=== PATIENT | female | born 1970 | race Caucasian/White ===

== ENCOUNTER 2016-10-18 19:05 | Inpatient (IN) | payer OTHER ==
[~2016-10-18] VITALS: Ht 154.9 cm; Wt 71.2 kg
[2016-10-18 19:25] VITALS: BP 134/93
--- NOTE | 2016-10-18 20:25 | NUR ---
Patient being evaluated by physician at bedside.
--- NOTE | 2016-10-18 20:25 | NUR ---
TO ER BED 8
--- NOTE | 2016-10-18 20:27 | NUR ---
C/O SOB/COUGH/FEVER/PAINFUL URINATION FOR 2 DAYSMED HX: ASTHMA/DIABETIC HX: CERVICAL CA/2006 SUDDEN CARDIAC
[2016-10-18] MEDS ORDERED: NITROGLYCERIN 0.4 MG TAB SL ONE (20:30)
[2016-10-18] MEDS ORDERED: ASPIRIN 325 MG TAB PO ONE (20:30)
[2016-10-18] MEDS ORDERED: ALBUTEROL 0.083% 2.5 MG/3 ML NEBU INH ONE (20:30)
[2016-10-18] MEDS ORDERED: methylPREDNISolone SS 125 MG/2 ML VIAL IVP ONE (20:30)
[2016-10-18] MEDS ORDERED: IPRATROPIUM 0.02% 0.5 MG/2.5 ML NEBU INH ONE (20:30)
[2016-10-18] MEDS ORDERED: cefTRIAXone 1,000 MG VIAL ONE (21:07)
--- NOTE | 2016-10-18 21:49 | NUR ---
Patient will be admitted to care of [facility]. Admited to TELEMETRY. Will go to [facility] 106 A. Belongings list completed. Report to JOI JOY.
[2016-10-18] MEDS ORDERED: MORPHINE SULFATE 2 MG/ML SYR IVP PRN (22:00)
[2016-10-18] MEDS ORDERED: HYDROcodone/APAP 5/325 MG 1 TAB TAB PO PRN (22:00)
[2016-10-18] MEDS: METOPROLOL SUCCINATE 50 MG TABER PO SCH (22:00)
[2016-10-18] MEDS: LISINOPRIL 5 MG TAB PO SCH (22:00)
[2016-10-18] MEDS ORDERED: ACETAMINOPHEN 325 MG TAB PO PRN (22:00)
[2016-10-18] MEDS ORDERED: ALBUTEROL SULFATE/IPRATROPIU 3 ML SOL IH PRN (22:00)
[2016-10-18] MEDS ORDERED: ONDANSETRON 4 MG/2 ML VIAL IVP PRN (22:00)
--- NOTE | 2016-10-18 22:02 | NUR ---
PT TRASFERRED TO TELEMETRY ROOM 106 A. ACCOMPANIED BY RN AND EMT. MONITOR IN BED. NO S/S OF DISTRESS DURING TRASFER.
[2016-10-18 22:10] VITALS: BP 115/68
--- NOTE | 2016-10-18 22:30 | NUR ---
ADMITTED 46 Y/O FEMALE TO TELE FROM ER AT 2205 PM VIA GURNEY WITH DX: CHEST PAIN. INITIAL ASSESSMENT, BODY CHECK AND ADMISSION INTERVENTION DONE. PATIENT AAO X 4, ABLE TO FOLLOW COMMAND AND MAKE NEEDS KNOWN AND AMBULATORY BY SELF WITH STEADY GAIT. NO S/S OF DISTRESS OR SOB NOTED UPON ADMISSION. SKIN WARM/DRY TO TOUCH WITH NORMAL COLOR AND INTACT. LUNG SOUNDS ALL CLEAR ALL LOBES. DENIED OF ANY PAIN/DISCOMFORT AT THIS TIME. INSTRUCTED PATIENT TO UNIT/ENVIRONMENT. ALSO, DISCUSSED PLAN OF CARE, PAIN MANAGEMENT AND MEDICATION REGIMEN WITH PATIENT AND PATIENT VERBALIZED UNDERSTANDING. PLACED PATIENT ON SAFETY PRECAUTIONS AND WILL CONTINUE TO MONITOR. CALL LIGHT LEFT WITHIN REACH.
[2016-10-18] MEDS ORDERED: PNEUMOCOCCAL VACCINE 23 MCG/0.5 ML VIAL IMVAC PRN (23:15)
[2016-10-18] MEDS: ALBUTEROL SULFATE/IPRATROPIU 3 ML SOL IH SCH (23:18)
--- NOTE | 2016-10-18 23:30 | NUR ---
NOT ADMINISTER BLOOD PRESSURE MEDICATIONS TONIGHT DUE TO PATIENT STATED THAT SHE ALREADY TOOK THEM TODAY. GAVE 1 PAIR OF CHICKEN SANDWICH AND ICE-WATER PER REQUESTED.
[2016-10-19] VITALS (7 sets, daily range): BP systolic 102–140; BP diastolic 62–77
--- NOTE | 2016-10-19 00:20 | NUR ---
PATIENT RESTED COMFORTABLY IN BED AND REMAINED IN STABLE CONDITION. NO ANY COMPLAINT MADE. WILL CONTINUE TO MONITOR.
[2016-10-19] MEDS: ALBUTEROL SULFATE/IPRATROPIU 3 ML SOL IH SCH ×6 (03:26→23:00)
--- NOTE | 2016-10-19 03:30 | NUR ---
PATIENT IS CLINICALLY STABLE AND NO APPARENT DISTRESS NOTED. WILL CONTINUE TO MONITOR.
[2016-10-19] MEDS: methylPREDNISolone SS 125 MG/2 ML VIAL IVP SCH ×3 (04:13→20:45)
--- NOTE | 2016-10-19 07:23 | NUR ---
ENDORSED PLAN OF CARE TO JOI WHITNEY, AT BEDSIDE. PATIENT RESTED WELL THROUGHOUT THE SHIFT AND REMAINED IN STABLE CONDITION WITHOUT S/S OF DISTRESS NOTED.
--- NOTE | 2016-10-19 07:30 | NUR ---
PATIENT HAS BEEN SCREENED AND CATEGORIZED MODERATE NUTRITION RISK. PATIENT WILL BE SEEN WITHIN 3-5 DAYS OF ADMISSION. 10/21/16-10/23/[address]
--- NOTE | 2016-10-19 07:31 | NUR ---
PT ALERT AND ORIENTED X4, BREATHING EVENLY AND UNLABORED. NO SIGNS OF ACUTE DISTRESS. SKIN IS INTACT WARM AND DRY. NO SIGNS OF ANY BOWEL/BLADDER DISCOMFORT. NO C/O OF PAIN. ALL NEEDS ATTENDED, SAFETY PRECAUTIONS MAINTAINED. CALL LIGHT WITHIN REACH.
[2016-10-19] MEDS: LACTOBACILLUS RHAMNOSUS GG 1 EACH CAP PO SCH (08:12)
[2016-10-19] MEDS: LISINOPRIL 5 MG TAB PO SCH (08:13)
[2016-10-19] MEDS: METOPROLOL SUCCINATE 50 MG TABER PO SCH (08:13)
[2016-10-19] MEDS: MONTELUKAST SODIUM 10 MG TAB PO SCH (08:13)
[2016-10-19] MEDS ORDERED: ATORVASTATIN 20 MG TAB PO SCH (09:00)
[2016-10-19] MEDS ORDERED: ECOTRIN 81 MG TABEC PO SCH (09:00)
[2016-10-19] MEDS ORDERED: NACL 0.9% 1,000 ML IV SCH (11:05)
--- NOTE | 2016-10-19 11:13 | NUR ---
WAS SEEN BY DR. CARDOZO. NEW ORDER RECEIVED. NOTED AND CARRIED OUT.
--- NOTE | 2016-10-19 12:00 | NUR ---
FAXED INITIAL REVIEW TO [facility] [phone] PHONE JC [phone]
[2016-10-19] MEDS ORDERED: LISINOPRIL 10 MG TAB PO SCH (12:15)
[2016-10-19] MEDS ORDERED: LORATADINE 10 MG TAB PO SCH (12:30)
[2016-10-19] MEDS ORDERED: MAG SULF 2000 MG/WATER PREMIX 50 ML IV SCH (12:30)
[2016-10-19] MEDS ORDERED: DEXTROSE 50% 50 ML SYR IVP PRN (12:30)
[2016-10-19] MEDS ORDERED: METOPROLOL SUCCINATE 50 MG TABER PO SCH (13:00)
[2016-10-19] MEDS ORDERED: AZITHROMYCIN 250 MG TAB PO SCH (13:00)
[2016-10-19] MEDS ORDERED: FAMOTIDINE 20 MG TAB PO SCH (13:00)
--- NOTE | 2016-10-19 15:46 | NUR ---
NEW AM LAB ORDERS RECEIVED FORM DR. CARDOZO. NOTED AND CARRIED OUT.
[2016-10-19] MEDS: GLIMEPIRIDE 2 MG TAB PO SCH (16:32)
[2016-10-19] MEDS: metFORMIN 500 MG TAB PO SCH (16:33)
[2016-10-19] MEDS: BLOOD GLUCOSE MONITORING 1 DEV DEV FS SCH ×3 (16:43→20:44)
[2016-10-19] MEDS: INSULIN LISPRO SLIDING SCALE 100 UNITS/ML VIAL SUBQ PRN ×2 (16:44→20:54)
--- NOTE | 2016-10-19 16:51 | NUR ---
NOTED PT'S BS 453, DR CARIDAD SPANN AWARE, GIVEN 10 UNITS OF INSULIN SQ PRN X1 ORDERED. CONTINUE TO MONITOR.
[2016-10-19] MEDS ORDERED: POTASSIUM CHLORIDE 10 MEQ TABER PO SCH (17:00)
--- NOTE | 2016-10-19 18:00 | NUR ---
NEW DIET ORDER RECEIVED FROM DR. SPANN NOTED AND CARRIED OUT.
--- NOTE | 2016-10-19 19:02 | NUR ---
PT ALERT AND RESPONSIVE, NO SIGNS OF ACUTE DISTRESS. ENDORSED TO ONCOMING ORNAMENTAL METAL WORKER NURSE FOR CONTINUITY OF CARE.
--- NOTE | 2016-10-19 19:28 | NUR ---
RECEIVED REPORT FROM JOI WHITNEY, AT BEDSIDE. INITIAL ASSESSMENT AND BODY CHECK DONE. PATIENT AAO X 4, ABLE TO FOLLOW COMMAND AND MAKE NEEDS KNOWN AND AMBULATORY BY SELF WITH STEADY GAIT. PATIENT CURRENTLY SITING UP ON THE BED AND WATCHING TV. NO S/S OF DISTRESS OR SOB NOTED. SKIN WARM/DRY TO TOUCH WITH NORMAL COLOR AND INTACT. DENIED OF ANY PAIN/DISCOMFORT AT THIS TIME. DISCUSSED PLAN OF CARE, PAIN MANAGEMENT AND MEDICATION REGIMEN WITH PATIENT AND PATIENT VERBALIZED UNDERSTANDING. PLACED PATIENT ON SAFETY PRECAUTIONS AND WILL CONTINUE TO MONITOR. CALL LIGHT LEFT WITHIN REACH.
--- NOTE | 2016-10-19 19:40 | NUR ---
FAMILY IN THE ROOM. PT REFUSED TX , SHE SAID THAT SHE FEEL BETTER
--- NOTE | 2016-10-19 21:30 | NUR ---
ADMINISTERED DUE MEDICATIONS AND HS SNACKS MD'S ORDERED WITH EDUCATION GIVEN. PATIENT COMPLYING WITH MEDICATIONS AND TOLERATED WELL. RESTED COMFORTABLY IN BED WITH ALL NEEDS ATTENDED. WILL CONTINUE TO MONITOR.
--- NOTE | 2016-10-20 00:11 | NUR ---
SEEN PATIENT AMBULATED TO THE RESTROOM AND BACK TO BED SAFELY BY SELF WITHOUT ANY DIFFICULTY. PATIENT REMAINED IN STABLE CONDITION AND NO ANY COMPLAINT MADE. WILL CONTINUE TO MONITOR.
--- NOTE | 2016-10-20 02:06 | NUR ---
PATIENT IS RESTING QUIETLY IN BED AND NO CHANGE IN CONDITION NOTED. WILL CONTINUE TO MONITOR.
[2016-10-20] MEDS: ALBUTEROL SULFATE/IPRATROPIU 3 ML SOL IH SCH ×6 (03:30→23:29)
--- NOTE | 2016-10-20 03:30 | NUR ---
PT ASLEEP, SAT IN ROOM AIR 97%, NO DISTRESS NOTED, NOTIFIED RN THAT PT REFUSED AND CALL IF PT ASK FOR TX HHN.
[2016-10-20 04:00] VITALS: BP 126/75
[2016-10-20] MEDS: methylPREDNISolone SS 40 MG/ML VIAL IVP SCH ×3 (04:28→20:34)
--- NOTE | 2016-10-20 04:55 | NUR ---
PATIENT IS CLINICALLY STABLE WITH UNCHANGED V/S. WILL CONTINUE TO MONITOR.
[2016-10-20] MEDS: BLOOD GLUCOSE MONITORING 1 DEV DEV FS SCH ×4 (05:43→22:50)
[2016-10-20] MEDS: INSULIN LISPRO SLIDING SCALE 100 UNITS/ML VIAL SUBQ PRN ×4 (05:45→22:52)
--- NOTE | 2016-10-20 07:11 | NUR ---
ENDORSED PLAN OF CARE TO JOI HARMAN, AT BEDSIDE. PATIENT REMAINED IN STABLE CONDITION AND NO APPARENT DISTRESS NOTED.
--- NOTE | 2016-10-20 07:12 | NUR ---
RECEIVED REPORT FROM JOI JOY. PT IS AWAKE RESTING ON BED, AAO X4, SKIN INTACT, IV ON RIGHT AC FLUSHED PATENT AND INTACT ON SL, INITIAL ASSESSMENT DONE, NO S/S OF RESPIRATORY DISTRESS OR DISCOMFORT NOTED, DISCUSSED PLAN OF CARE, PT VERBALIZED UNDERSTANDING, SAFETY/FALL PRECAUTION ENFORCED, CALL LIGHT WITHIN REACH, WILL CONTINUE TO MONITOR.
--- NOTE | 2016-10-20 07:16 | NUR ---
HHN TX GIVEN. CLEAR BS. SAT 96% ON RA. NO DISTRESS OR SOB NOTED. PT AWAKE AND ALERT. WILL CONTINUE TO MONITOR.
[2016-10-20 07:51] VITALS: BP 103/69
[2016-10-20] MEDS: LORATADINE 10 MG TAB PO SCH (08:31)
[2016-10-20] MEDS: metFORMIN 500 MG TAB PO SCH ×3 (08:31→17:14)
[2016-10-20] MEDS: ASPIRIN 81 MG TAB.CHEW PO SCH (08:33)
[2016-10-20] MEDS: FAMOTIDINE 20 MG TAB PO SCH (08:33)
[2016-10-20] MEDS: GLIMEPIRIDE 2 MG TAB PO SCH ×2 (08:33→17:14)
[2016-10-20] MEDS: LACTOBACILLUS RHAMNOSUS GG 1 EACH CAP PO SCH (08:33)
[2016-10-20] MEDS: ATORVASTATIN 20 MG TAB PO SCH (08:33)
[2016-10-20] MEDS: MONTELUKAST SODIUM 10 MG TAB PO SCH (08:33)
[2016-10-20] MEDS ORDERED: CIPRO500 MG PO (08:36)
[2016-10-20] MEDS: LISINOPRIL 20 MG TAB PO SCH (08:37)
[2016-10-20] MEDS: METOPROLOL SUCCINATE 50 MG TABER PO SCH (08:37)
--- NOTE | 2016-10-20 08:37 | NUR ---
DUE MEDS GIVEN, PT TOLERATED WELL, CALL LIGHT WITHIN REACH, WILL CONTINUE TO MONITOR.
[2016-10-20] MEDS ORDERED: AZITHROMYCIN250 MG PO (08:46)
[2016-10-20] MEDS ORDERED: LEVAQUIN500 M1 PO (08:49)
[2016-10-20] MEDS ORDERED: FLORASTOR250 MG PO (08:54)
[2016-10-20] MEDS ORDERED: AMARYL2 MG PO (08:54)
[2016-10-20] MEDS ORDERED: MEDROL4 M1 PO (08:54)
[2016-10-20] MEDS ORDERED: METFORMIN HCL500 MG PO (08:54)
[2016-10-20] MEDS ORDERED: INSULIN DETEMIR 100 UNITS/ML 10 ML VIAL SUBQ SCH (09:00)
--- NOTE | 2016-10-20 11:10 | NUR ---
PT IS RESTING ON BED WATCHING TV, ALL NEEDS MET AT THIS TIME, CALL LIGHT WITHIN REACH, WILL CONTINUE TO MONITOR.
[2016-10-20] MEDS ORDERED: NACL 0.9% 500 ML IV ONE (11:15)
[2016-10-20 12:00] VITALS: BP 135/80
[2016-10-20] MEDS: AZITHROMYCIN 250 MG TAB PO SCH (12:19)
--- NOTE | 2016-10-20 13:11 | NUR ---
CALLED [employer] REGARDING PT'S DEFIB. AWAITING FOR A CALL BACK FROM A LINUX SERVER ADMINISTRATOR.
--- NOTE | 2016-10-20 13:30 | NUR ---
SPOKE TO [facility] GRAPHIC COORDINATOR WITH DR. CHAMBERLAIN ON THE SIDE WHILE I AM ON THE PHONE, ASKED IF THEY CAN CHECK PT'S DEFIB, GRAPHIC COORDINATOR JUST ASKED THE REASON AND ANSWERED THAT PT'S DEFIB HAS NOT BEEN CHECKED FOR A YEAR, GRAPHIC COORDINATOR STATED THAT IF THEY HAVE A GRAPHIC COORDINATOR CLOSE BY THEY WILL SEE AND CHECK THE PT'S DEFIB.
--- NOTE | 2016-10-20 13:56 | NUR ---
PT IS RESTING ON BED TALKING TO FAMILY MEMBER AT BEDSIDE, ALL NEEDS MET AT THIS TIME, CALL LIGHT WITHIN REACH, WILL CONTINUE TO MONITOR.
--- NOTE | 2016-10-20 14:28 | NUR ---
CM NOTE FAXED CONCURRENT REVIEW TO [facility] [phone] PHONE JC [phone]
--- NOTE | 2016-10-20 14:49 | NUR ---
PT REFUSED HHN TX. FAMILY AT BEDSIDE. JOI KELLY.
--- NOTE | 2016-10-20 15:25 | NUR ---
PT IS WATCHING TV, NO S/S OF RESPIRATORY DISTRESS OR DISCOMFORT NOTED, ALL NEEDS MET AT THIS TIME, CALL LIGHT WITHIN REACH, WILL CONTINUE TO MONITOR.
[2016-10-20 16:00] VITALS: BP 143/75
--- NOTE | 2016-10-20 17:58 | NUR ---
DINNER SERVED, PT HAS GOOD APPETITE, ALL NEEDS MET AT THIS TIME, CALL LIGHT WITHIN REACH, WILL CONTINUE TO MONITOR.
--- NOTE | 2016-10-20 19:15 | NUR ---
ENDORSED PT TO JOI KYLE FOR CONTINUITY OF CARE. PT IS STABLE AT THIS TIME.
--- NOTE | 2016-10-20 19:16 | NUR ---
RECEIVED REPORT FROM DAY RN FOR CONTINUITY OF CARE. PATIENT IS A&OX4, DISCUSSED PLAN OF CARE WITH PATIENT, VERBALIZED UNDERSTANDING. SHIFT ASSESSMENT DONE, VS TAKEN, STABLE AT THIS TIME. NO S/S OF RESPIRATORY DISTRESS NOTED ON ROOM AIR. PATIENT DENIES PAIN. IV TO RT AC 20 GAUGE PATENT AND FLUSHED. SKIN INTACT. SAFETY PRECAUTIONS ENFORCED. CALL LIGHT WITHIN REACH. FAMILY MEMBERS AT BEDSIDE. WILL CONTINUE TO MONITOR.
[2016-10-20 20:00] VITALS: BP 152/82
--- NOTE | 2016-10-20 20:34 | NUR ---
DUE MEDICATIONS ADMINISTERED, TOLERATED WELL. NO S/S OF DISTRESS OR DISCOMFORT. FAMILY MEMBERS AT BEDSIDE.
--- NOTE | 2016-10-20 22:52 | NUR ---
BLOOD SUGAR 214, ADMINISTERED INSULIN PER MD ORDER. ALL NEEDS MET AT THIS TIME. CALL LIGHT WITHIN REACH. WILL CONTINUE TO MONITOR.
[2016-10-21] VITALS: BP 136/76
--- NOTE | 2016-10-21 00:07 | NUR ---
VS TAKEN, STABLE. PATIENT DENIES PAIN. CALL LIGHT PLACED WITHIN REACH.
--- NOTE | 2016-10-21 02:06 | NUR ---
PT IS SLEEPING. NO S/S OF DISTRESS OR DISCOMFORT NOTED. CALL LIGHT WITHIN REACH.
[2016-10-21] MEDS: ALBUTEROL SULFATE/IPRATROPIU 3 ML SOL IH SCH ×3 (03:49→11:00)
[2016-10-21 04:00] VITALS: BP 126/73
[2016-10-21] MEDS: methylPREDNISolone SS 40 MG/ML VIAL IVP SCH ×2 (04:02→12:08)
--- NOTE | 2016-10-21 04:13 | NUR ---
VS TAKEN, STABLE. DUE MEDICATIONS ADMINISTERED. ALL NEEDS MET AT THIS TIME. WILL CONTINUE TO MONITOR.
[2016-10-21] MEDS: BLOOD GLUCOSE MONITORING 1 DEV DEV FS SCH ×2 (05:44→11:26)
[2016-10-21] MEDS: INSULIN LISPRO SLIDING SCALE 100 UNITS/ML VIAL SUBQ PRN ×2 (06:18→11:43)
--- NOTE | 2016-10-21 06:18 | NUR ---
BLOOD SUGAR 257, ADMINISTERED INSULIN PER MD ORDER. ALL NEEDS MET AT THIS TIME. WILL CONTINUE TO MONITOR.
--- NOTE | 2016-10-21 07:21 | NUR ---
ENDORSED PATIENT TO DAY RN FOR CONTINUITY OF CARE, PATIENT IS IN STABLE CONDITION.
--- NOTE | 2016-10-21 07:53 | NUR ---
AWAKE AND ALERT IN HFW POSITION BREATH SOUNDS CLEAR BILATERAL GOOD CHEST RISE SATURATION 98% HR 96 RR 20 PATIENT REFUSING HHN THERAPY GABY/RN NOTIFIED
--- NOTE | 2016-10-21 08:00 | NUR ---
RECEIVED REPORT FROM HANANE TAMEZ FOR CONTINUITY OF CARE. PATIENT AWAKE A/O X 4 , ABLE TO MAKE NEEDS KNOWN. NO S/S OF RESP DISTRESS NOTED , DENIES ANY PAIN. IV SITE RT AC GAUGE 20 INTACT AND PATENT. IVF INFUSING WELL. PLAN OF CARE DISCUSSED WITH THE PATIENT VITALS STABLE WILL CONTINUE TO MONITOR.
[2016-10-21] MEDS ORDERED: INSULIN DETEMIR 100 UNITS/ML 10 ML VIAL SUBQ SCH (09:00)
[2016-10-21] MEDS: LORATADINE 10 MG TAB PO SCH (09:09)
[2016-10-21] MEDS: LISINOPRIL 20 MG TAB PO SCH (09:09)
[2016-10-21] MEDS: METOPROLOL SUCCINATE 50 MG TABER PO SCH (09:09)
[2016-10-21] MEDS: metFORMIN 500 MG TAB PO SCH ×2 (09:10→12:08)
[2016-10-21] MEDS: ASPIRIN 81 MG TAB.CHEW PO SCH (09:11)
[2016-10-21] MEDS: LACTOBACILLUS RHAMNOSUS GG 1 EACH CAP PO SCH (09:11)
[2016-10-21] MEDS: FAMOTIDINE 20 MG TAB PO SCH (09:11)
[2016-10-21] MEDS: MONTELUKAST SODIUM 10 MG TAB PO SCH (09:11)
[2016-10-21] MEDS: ATORVASTATIN 20 MG TAB PO SCH (09:11)
[2016-10-21] MEDS: GLIMEPIRIDE 2 MG TAB PO SCH (09:12)
--- NOTE | 2016-10-21 09:20 | NUR ---
RECEIVED REPORT FROM JOI GRIFFIN, PTZack MATTSON, WILL CONTINUE TO MONITOR
--- NOTE | 2016-10-21 09:42 | NUR ---
CM NOTE FAXED CONCURRENT REVIEW TO [facility] [phone] PHONE JC [phone]
[2016-10-21 09:45] VITALS: BP 145/78
[2016-10-21 11:29] VITALS: BP 147/84
--- NOTE | 2016-10-21 11:49 | NUR ---
PT. TOLERATED MEDS WITHOUT PROBLEM
--- NOTE | 2016-10-21 12:06 | NUR ---
AWAKE AND ALERT RESPONSIVE SITTING UP IN BED NO EVIDENCE OF RESPIRATORY DISTRESS NOTED SATURATION 98% ROOM AIR HR 81 RR 16 PATIENT REFUSING HHN THERAPY ROSIO/RN NOTIFIED
[2016-10-21] MEDS: AZITHROMYCIN 250 MG TAB PO SCH (12:08)
[2016-10-21] MEDS ORDERED: ZITHROMAX250 MG PO (14:16)
[2016-10-21] MEDS ORDERED: MACROBID100 M1 PO (14:16)
[2016-10-21] MEDS ORDERED: FLORASTOR250 MG PO (14:18)
[2016-10-21] MEDS ORDERED: MEDROL DOSEPAK4 MG PO (14:18)
--- NOTE | 2016-10-21 14:53 | NUR ---
DISCHARGE INSTRUCTIONS GIVEN, PT. VERBALIZED UNDERSTANDING, DISCHARGE PRESCRIPTION GIVEN, IV REMOVED TIP INTACT, TELE BOX REMOVED, ALL PERSONAL BELONGINGS WITH PT., PT. DISCHARGED IN STABLE CONDITION WITH DAUGHTER TO HOME
== END 2016-10-21 14:50 | disposition home or self-care (01) | DRG 205 ==
LOC: MED 19:05 → MTU 21:36
PROVIDERS: ADMIT Family Medicine; ATTEND Family Medicine
DX: M94.0 Chondrocostal junction syndrome [Tietze] (principal); J96.00 Acute respiratory failure, unspecified whether with hypoxia or hypercapnia; N17.0 Acute kidney failure with tubular necrosis; J45.901 Unspecified asthma with (acute) exacerbation; N39.0 Urinary tract infection, site not specified; D68.69 Other thrombophilia; E11.65 Type 2 diabetes mellitus with hyperglycemia; E83.42 Hypomagnesemia; E87.6 Hypokalemia; I10 Essential (primary) hypertension; Z95.0 Presence of cardiac pacemaker; Z85.41 Personal history of malignant neoplasm of cervix uteri; Z90.710 Acquired absence of both cervix and uterus; Z83.3 Family history of diabetes mellitus; Z86.74 Personal history of sudden cardiac arrest

== ENCOUNTER 2018-02-10 17:44 | Inpatient (IN) | payer OTHER ==
[~2018-02-10] VITALS: Ht 157.5 cm; Wt 72.6 kg
[~2018-02-10 17:44] MED LIST: AZIT250T3 PO; FLOR250 PO; METH4TAB3 PO; NITR100C7 PO
[2018-02-10 17:50] VITALS: BP 120/100
--- NOTE | 2018-02-10 17:56 | NUR ---
EKG DONE IN TRIAGE, OK TO WAIT INLOBBY PER DR CURTIS. PT ADVISED TO NOTIFY STAFFIMMEDIATELY IF CONDITON CHANGES.
--- NOTE | 2018-02-10 17:59 | NUR ---
BS-540, PT PLACED IN ROOM
--- NOTE | 2018-02-10 18:01 | NUR ---
PT AMBULATED TO ER BED 07
[2018-02-10] MEDS ORDERED: NACL 0.9% 1,000 ML IV ONE (18:05)
--- NOTE | 2018-02-10 18:15 | NUR ---
47/f bib C/O INTEMRITTENT ANTERIOR CHEST PAIN -(TIGHT) WHILE DOING NOTHING, SOB X 1 DAY. SPEAKING IN FULL CLR SENTNECES, RESP EVEN AND UNLABORED. MED HX: DEFIBRILLATOR PLACED IN 2010, DM, HTN. RX: LISINOPRIL, METFORMIN, CHLORATHADONE, BABY ASA . DENIES N/V/D; SKIN IS PINK/WARM/DRY; AAOX4 WITH EVEN AND STEADY GAIT; LUNGS CLEAR BL; PT DENIES ANY FEVER, SOB, OR COUGH AT THIS TIME; PATIENT STATES PAIN OF 7/10 AT THIS TIME; PATIENT POSITIONED FOR COMFORT; HOB ELEVATED; BEDRAILS UP X2; BED DOWN. ER MD MADE AWARE OF PT STATUS.
[2018-02-10 18:41] LABS: BASOPHILS % (AUTO) 0.5 % (0.0-2.0); EOSINOPHILS # (AUTO) 0.1 K/uL (0-0.4); EOSINOPHILS % (AUTO) 2.1 % (0.0-4.0); LYMPHOCYTES # (AUTO) 1.9 K/uL (2.5-16.5); LYMPHOCYTES % (AUTO) 30.5 % (20.5-51.1); MEAN CORPUSCULAR HEMOGLOBIN 30 pg (27-31); MEAN CORPUSCULAR HGB CONC 33 g/dL (33-37); MEAN CORPUSCULAR VOLUME 91.3 fL (80-94); MONOCYTES # (AUTO) 0.4 K/uL (0.8-1.0); MONOCYTES % (AUTO) 6.3 % (1.7-9.3); NEUTROPHILS # (AUTO) 3.8 K/uL (1.8-7.7); NEUTROPHILS % (AUTO) 60.6 % (42.2-75.2); PLATELET COUNT (AUTO) 233 K/uL (140-450); RED BLOOD CELL COUNT(AUTO) 4.93 MIL/uL (4.20-5.40); RED CELL DISTRIBUTION WIDTH 13.5 % (11.6-13.7); WHITE BLOOD COUNT (AUTO) 6.3 K/uL (4.8-10.8)
[2018-02-10 19:03] LABS: ANION GAP 13.5 (8-16); CARBON DIOXIDE 27.4 mmol/L (21-32); CREATININE 1.3 mg/dL (0.6-1.3); POTASSIUM 3.9 mmol/L (3.5-5.1); TOTAL BILIRUBIN 0.4 mg/dL (0.0-1.0)
--- NOTE | 2018-02-10 19:11 | NUR ---
Pt report given to LISSETH TAMEZ. Transfer of care at this time.
[2018-02-10 19:25] LABS: PROTHROMBIN TIME 9.9 secs (10.8-13.4)
--- NOTE | 2018-02-10 19:25 | NUR ---
pt sitting up in bed, offerred comfort measures. pt tolerated well.
[2018-02-10] MEDS ORDERED: ASPIRIN 325 MG TAB PO ONE (20:40)
[2018-02-10] MEDS ORDERED: NITROGLYCERIN 0.4 MG TAB SL ONE (20:40)
[2018-02-10] MEDS ORDERED: ONDANSETRON 4 MG/2 ML VIAL IVP PRN (20:55)
[2018-02-10] MEDS ORDERED: ACETAMINOPHEN 325 MG TAB PO PRN (20:55)
[2018-02-10] MEDS ORDERED: NITROGLYCERIN 0.4 MG TAB SL PRN (21:05)
[2018-02-10] MEDS ORDERED: DEXTROSE 50% 50 ML SYR IVP PRN ×2 (21:05)
[2018-02-10 21:34] LABS: FREE T4 (FREE THYROXINE) 0.85 ng/dL (0.76-1.46); MAGNESIUM 1.6 mg/dL (1.8-2.4); PHOSPHORUS 3.8 mg/dL (2.5-4.9); THYROID STIMULATING HORMONE 1.43 uIU/mL (0.34-3.74)
[2018-02-10 22:10] VITALS: BP 113/77
--- NOTE | 2018-02-10 22:10 | NUR ---
Patient will be admitted to care of dr. Cruz . Admited to telemetry. Will go to roomb 107 A. Belongings list completed. Report to carissa TAMEZ.
--- NOTE | 2018-02-10 22:10 | NUR ---
RECEIVED PT FROM ER VIA DENIZ WITH DX UNCONTROLLED DM AND CHEST PAIN DENIES CHEST PAIN ON ADMISSION PT IS AAOX4 AMBULATORY IV ON RT AC PATENT ON TELEMETRY SR MRSA NARES PROTOCOL TAKEN AND SENT TO LAB.PT IS ORIENTED TO THE FLOOR CALL LIGHT WITHIN REACH
--- NOTE | 2018-02-10 22:10 | NUR ---
Pt report given to carissa. Transfer of care at this time. telemetry. pt vitals stable
[2018-02-10] MEDS: DOCUSATE SODIUM 100 MG GELCAP PO SCH (22:27)
[2018-02-10] MEDS: BLOOD GLUCOSE MONITORING 1 DEV DEV FS SCH (22:27)
[2018-02-10] MEDS: NACL 0.9% 1,000 ML IV SCH (22:27)
[2018-02-10] MEDS: INSULIN LISPRO SLIDING SCALE 100 UNITS/ML VIAL SUBQ PRN (22:34)
--- NOTE | 2018-02-10 22:34 | NUR ---
BLOOD SUGAR TEST 382 COVERAGE WITH HUMALOG 10 UNITS SUBQ FOLLOW PROTOCOL SEE DOCUMENTATION
[2018-02-10] MEDS: HYDROcodone/APAP 7.5/325 MG 1 TAB PO PRN (22:39)
[2018-02-11] VITALS: BP 99/56
[2018-02-11 00:19] LABS: APPEARANCE,URINE CLEAR (CLEAR); BILIRUBIN,URINE NEGATIVE (NEGATIVE); BLOOD, URINE NEGATIVE (NEGATIVE); COLOR,URINE YELLOW (YELLOW); LEUKOCYTE ESTERASE ,URINE NEGATIVE (NEGATIVE); NITRITE, URINE NEGATIVE (NEGATIVE); PH,URINE 5.5 (5.0-9.0); UGLUCOSE 3+ (NEGATIVE)
[2018-02-11 00:27] LABS: BARBITURATE, URINE NEG. ng/ml (NEG <=200); BENZODIAZEPINE, URINE NEG. ng/mL (NEG <=200); CANNABINOID, URINE NEG. ng/mL (NEG <=50); COCAINE, URINE NEG. ng/mL (NEG <=300); PHENCYCLIDINE SCREEN,URINE NEG. ng/mL (NEG <=25)
[2018-02-11 00:29] LABS: RBC,URINE 0-5 (RARE) /HPF (0-5); WBC,URINE 0-5 (RARE) /HPF (0-5)
[2018-02-11 00:40] LABS: OPIATE, URINE NEG. ng/mL (NEG <=2000)
--- NOTE | 2018-02-11 01:00 | NUR ---
PT REMAIN STABLE SLEEPIND NOT SIGNS OF PAIN NOTED ON TELEMETRY SR
--- NOTE | 2018-02-11 02:44 | NUR ---
DR PERRY WAS NOTIFY PT LOW MG
[2018-02-11 04:00] VITALS: BP 116/54
[2018-02-11] MEDS: HYDROcodone/APAP 7.5/325 MG 1 TAB PO PRN ×2 (04:39→08:44)
--- NOTE | 2018-02-11 05:17 | NUR ---
AFTER PAIN MEDIC GIVEN PT REMAIN STABLE SLEEPING WELL ON TELEMETRY SR IV ON RT AC INFUSING WELL, ON TELEMETRY SR
[2018-02-11] MEDS: INSULIN LISPRO SLIDING SCALE 100 UNITS/ML VIAL SUBQ PRN ×4 (06:33→20:58)
[2018-02-11] MEDS: PANTOPRAZOLE 40 MG INJ VIAL IVP SCH (06:35)
[2018-02-11] MEDS: BLOOD GLUCOSE MONITORING 1 DEV DEV FS SCH ×4 (06:35→20:58)
--- NOTE | 2018-02-11 06:37 | NUR ---
PATIENT HAS BEEN SCREENED AND CATEGORIZED MODERATE NUTRITION RISK. PATIENT WILL BE SEEN WITHIN 3-5 DAYS OF ADMISSION. 02/13/18-02/15/18 YOBANY DEL VALLE MS, RDN
--- NOTE | 2018-02-11 06:58 | NUR ---
BLOOD SUGAR 302 COVERAGE WITH 8 UNIT SUBQ HUMALOG FOLLOWING PROTOCOL DENIES ANY PAIN AT THIS TIME
--- NOTE | 2018-02-11 07:20 | NUR ---
RECEIVED REPORT FROM FUSE CUTTER RN. PATIENT IS AAOX4, HAS NO SIGNS AND SYMPTOMS OF ACUTE DISTRESS NOTED AT THIS TIME. HAS IV TO THE RIGHT AC 20G, INFUSING NS AT 50 ML/HR. DISCUSSED PLAN OF CARE WITH PATIENT AND SHE VERBALIZED UNDERSTANDING. BED IN LOWEST POSITION, SIDE RAILS UP X2, CALL LIGHT WITHIN REACH. WILL CONTINUE TO MONITOR.
[2018-02-11] MEDS ORDERED: MAGNESIUM OXIDE 400 MG TAB PO SCH (07:55)
[2018-02-11 08:00] VITALS: BP 106/68
[2018-02-11] MEDS ORDERED: metFORMIN 500 MG TAB PO SCH ×2 (08:00→17:00)
--- NOTE | 2018-02-11 08:40 | NUR ---
SPOKE WITH DR MCKOY LETTING HER KNOW THAT PATIENTS BP IS 106/68 AND SHE HAS THREE BP MEDS ORDERED. WANTED TO KNOW IF SHE WANTED ME TO HOLD/GIVE ANY. SHE STATED TO HOLD ALL THREE FOR NOW. IF HER BP INCREASES THEN WE CAN GIVE SOMETHING. WILL FOLLOW THROUGH WITH ORDER
[2018-02-11] MEDS: DOCUSATE SODIUM 100 MG GELCAP PO SCH ×2 (08:43→20:51)
[2018-02-11] MEDS: GLIMEPIRIDE 2 MG TAB PO SCH (08:44)
[2018-02-11] MEDS: ASPIRIN 81 MG TAB.CHEW PO SCH (08:44)
[2018-02-11] MEDS: HYDROCHLOROTHIAZIDE 25 MG TAB PO SCH (08:51)
[2018-02-11] MEDS ORDERED: METOPROLOL 25 MG TAB PO SCH (09:00)
[2018-02-11] MEDS ORDERED: GLIMEPIRIDE 2 MG TAB PO SCH (09:00)
[2018-02-11] MEDS ORDERED: LISINOPRIL 5 MG TAB PO SCH ×3 (09:00→18:00)
[2018-02-11 12:00] VITALS: BP 110/75
--- NOTE | 2018-02-11 12:50 | NUR ---
PATIENT HAVE ECHO DONE. WILL CONTINUE TO MONITOR.
--- NOTE | 2018-02-11 13:00 | NUR ---
ECHOCARDIOGRAM COMPLETED
--- NOTE | 2018-02-11 15:30 | NUR ---
PATIENTS FAMILY IS HERE VISITING. PATIENT HAS NO SIGNS AND SYMPTOMS OF ACUTE DISTRESS AT THIS TIME.
[2018-02-11 16:00] VITALS: BP 125/77
[2018-02-11] MEDS: metFORMIN 500 MG TAB PO SCH (16:53)
--- NOTE | 2018-02-11 19:15 | NUR ---
ENDORSED PATIENT TO COFFEE URN ATTENDANT RN FOR CONTINUITY OF CARE. PATIENT IN STABLE CONDITION.
--- NOTE | 2018-02-11 19:20 | NUR ---
RECEIVED PT ON BED TALKING TO FAMILY MEMBERS AT BEDSIDE, VITAL SIGNS STABLE, DENIES PAIN, NO SOB NOTED, NEW IV BAG OF NS AT 50ML STARTED, PLAN OF CARE DISCUSS, SAFETY MEASURES IN PLACE, CALL LIGHT WITHIN REACH.
[2018-02-11] MEDS: NACL 0.9% 1,000 ML IV SCH (19:53)
[2018-02-11 20:00] VITALS: BP 122/86
[2018-02-11] MEDS: CARVEDILOL 3.125 MG TAB PO SCH (20:51)
--- NOTE | 2018-02-11 20:55 | NUR ---
BLOOD SUGAR CHECKED WITH 169 RESULT, COVERAGE GIVEN, SNACK PROVIDED, DUE PO MEDICATIONS ADMINISTERED WITH EDUCATION PROVIDED, ALL NEEDS ATTENDED.
[2018-02-11] MEDS: RANOLAZINE 500 MG TER PO SCH (20:58)
[2018-02-11] MEDS ORDERED: ATORVASTATIN 20 MG TAB PO SCH (21:00)
[2018-02-11] MEDS ORDERED: CLOPIDOGREL 75 MG TAB PO SCH (21:00)
[2018-02-11] MEDS ORDERED: INSULIN LANTUS 100 UNITS/ML 10 ML VIAL SUBQ SCH (21:00)
--- NOTE | 2018-02-11 23:48 | NUR ---
PT SLEEPING, EASILY AROUSABLE, VITAL SIGNS STABLE, DENIES ANY PAIN, NO SOB NOTED, IVF INFUSING WELL, CONTINUE TO MONITOR CLOSELY.
[2018-02-12] VITALS: BP 125/65
[2018-02-12 04:00] VITALS: BP 109/70
--- NOTE | 2018-02-12 04:00 | NUR ---
PT SLEEPING, EASILY AROUSABLE, VITAL SIGNS STABLE, DENIES ANY PAIN, IVF INFUSING WELL, MONITORED CLOSELY.
[2018-02-12] MEDS: PANTOPRAZOLE 40 MG INJ VIAL IVP SCH (05:42)
[2018-02-12] MEDS: INSULIN LISPRO SLIDING SCALE 100 UNITS/ML VIAL SUBQ PRN ×2 (05:45→12:13)
--- NOTE | 2018-02-12 06:00 | NUR ---
PT AWAKE, BLOOD SUGAR CHECKED WITH 245 RESULT, WILL GIVEN COVERAGE, NO DISTRESS AT THIS TIME, MONITORED CLOSELY.
[2018-02-12] MEDS: BLOOD GLUCOSE MONITORING 1 DEV DEV FS SCH ×3 (06:34→16:33)
[2018-02-12 06:52] LABS: CARBON DIOXIDE 29.4 mmol/L (21-32); POTASSIUM 3.4 mmol/L (3.5-5.1)
[2018-02-12 06:56] LABS: MAGNESIUM 1.3 mg/dL (1.8-2.4); PHOSPHORUS 2.9 mg/dL (2.5-4.9)
[2018-02-12] MEDS ORDERED: POTASSIUM CHLORIDE 10 MEQ TABER PO SCH ×3 (07:10→14:30)
[2018-02-12] MEDS ORDERED: MAGNESIUM OXIDE 400 MG TAB PO SCH (07:10)
--- NOTE | 2018-02-12 07:20 | NUR ---
PT AWAKE, NO SIGNS OF DISTRESS, REPORT GIVEN TO RN JOSÉ FOR CONTINUITY OF CARE.
--- NOTE | 2018-02-12 07:22 | NUR ---
RECEIVED BEDSIDE REPORT FROM PHLEBOTOMIST LAB ASSISTANT NURSE. PATIENT IS AWAKE, ALERT AND ORIENTEDX4. NO SIGNS OF DISTRESS ON ROOM AIR. SKIN IS INTACT. IV ON R AC 20G INFUSING NS AT 50ML/HR. IV IS CLEAN, DRY AND INTACT. TELE MONITOR IN PLACE. NO COMPLAINTS OF CHEST PAIN AT THIS TIME. DR IN TO SEE PATIENT. BED IN LOW POSITION. CALL LIGHT WITHIN REACH. WILL CONTINUE TO MONITOR THE PATIENT.
[2018-02-12 07:58] VITALS: BP 112/98
[2018-02-12] MEDS: metFORMIN 500 MG TAB PO SCH (08:47)
[2018-02-12] MEDS: GLIMEPIRIDE 2 MG TAB PO SCH (08:47)
--- NOTE | 2018-02-12 08:49 | NUR ---
ADMINISTERED MEDS. PATIENT TOLERATED WELL. NO COMPLAINTS AT THIS TIME. BED IN LOW POSITION. CALL LIGHT WITHIN REACH. WILL CONTINUE TO MONITOR THE PATIENT.
[2018-02-12] MEDS: DOCUSATE SODIUM 100 MG GELCAP PO SCH (09:00)
[2018-02-12] MEDS: MONTELUKAST SODIUM 10 MG TAB PO SCH ×2 (09:00→10:06)
[2018-02-12] MEDS: RANOLAZINE 500 MG TER PO SCH (10:04)
[2018-02-12] MEDS: HYDROCHLOROTHIAZIDE 25 MG TAB PO SCH (10:05)
[2018-02-12] MEDS: ASPIRIN 81 MG TAB.CHEW PO SCH (10:05)
[2018-02-12] MEDS: CARVEDILOL 3.125 MG TAB PO SCH (10:06)
--- NOTE | 2018-02-12 10:09 | NUR ---
ADMINISTERED MEDS. PATIENT TOLERATED WELL. NO COMPLAINTS AT THIS TIME. WILL CONTINUE TO MONITOR THE PATIENT
[2018-02-12] MEDS ORDERED: MAG SULF 2000 MG/WATER PREMIX 100 ML IV ONE (11:45)
[2018-02-12 12:00] VITALS: BP 120/82
--- NOTE | 2018-02-12 12:20 | NUR ---
ADMINISTERED MEDS. PATIENT TOLERATED WELL. IV IS CLEAN, DRY AND INTACT. FAMILY AT BEDSIDE. WILL CONTINUE TO MONITOR THE PATIENT.
[2018-02-12] MEDS ORDERED: [UNRECOGNIZED DRUG - CODE] MC (13:35)
[2018-02-12] MEDS ORDERED: CARV3.122 PO (13:35)
[2018-02-12] MEDS ORDERED: RANEX500 PO (13:35)
[2018-02-12] MEDS ORDERED: CLOP75TA26 PO (13:35)
[2018-02-12] MEDS ORDERED: LISI-424 PO (13:35)
[2018-02-12] MEDS ORDERED: GLU500 PO (13:35)
[2018-02-12] MEDS ORDERED: MONT10TA35 PO (13:35)
[2018-02-12] MEDS ORDERED: ATOR20TA40 PO (13:35)
[2018-02-12] MEDS ORDERED: [UNRECOGNIZED DRUG - CODE] MC (13:35)
[2018-02-12] MEDS ORDERED: POTA10TE30 PO (13:35)
[2018-02-12] MEDS ORDERED: MAGN400T40 PO (13:35)
[2018-02-12] MEDS ORDERED: LANTUS SUBQ (13:35)
[2018-02-12] MEDS: NACL 0.9% 1,000 ML IV SCH (14:00)
--- NOTE | 2018-02-12 14:51 | NUR ---
ADMINISTERED MEDS. ADMINISTERED 2ND BAG OF MAGNESIUM. DID NOT SCAN, GOT THE OK FROM HOLDEN IN PHARMACY TO ADMINISTER THE SECOND BAG. PATIENT TOLERATING WELL. IV IS CLEAN, DRY AND INTACT. WILL CONTINUE TO MONITOR THE PATIENT. AT BEDSIDE.
[2018-02-12 16:00] VITALS: BP 121/83
--- NOTE | 2018-02-12 16:34 | NUR ---
PATIENT IN THE ROOM WITH . WANTS HER TO GO HOME ALREADY. EDUCATED PATIENT ON DISEASE PROCESS, ABN S/SX, WHEN TO GO TO THE NEAREST ER, FOLLOW UP W PCP AND ASSEMBLER ERECTOR, MEDICATIONS, GAVE PRESCRIPTIONS, PATIENT VERBALIZED UNDERSTANDING, SIGNED ALL DISCHARGED [id number]. ABOUT 20 MINS LEFT OF MAGNESIUM. ONCE FINISHED PATIENT MAY LEAVE. WILL CONTINUE TO MONITOR THE PATIENT.
--- NOTE | 2018-02-12 17:05 | NUR ---
MAGNESIUM IS DONE. REMOVED IV. IV TIP IS INTACT. REMOVED TELE MONITOR. REMOVED ID BAND. PATIENT LEFT W WALKING IN STABLE CONDITION. NO INSULIN GIVEN BECAUSE PATIENT DID NOT EAT DINNER HERE.
--- NOTE | 2018-02-13 15:23 | NUR ---
RETRO ER REPORT, H&P, PROGRESS NOTE AND DISCHARGE SUMMARY FAXED TO [facility] [phone]
== END 2018-02-12 17:05 | disposition home or self-care (01) | DRG 205 ==
LOC: MED 17:44 → MTU 20:55
PROVIDERS: ADMIT Family Medicine; ATTEND Family Medicine
DX: M94.0 Chondrocostal junction syndrome [Tietze] (principal); N17.0 Acute kidney failure with tubular necrosis; I24.9 Acute ischemic heart disease, unspecified; E87.1 Hypo-osmolality and hyponatremia; D68.59 Other primary thrombophilia; K21.9 Gastro-esophageal reflux disease without esophagitis; I10 Essential (primary) hypertension; E11.69 Type 2 diabetes mellitus with other specified complication; E11.51 Type 2 diabetes mellitus with diabetic peripheral angiopathy without gangrene; J45.909 Unspecified asthma, uncomplicated; E11.65 Type 2 diabetes mellitus with hyperglycemia; E83.42 Hypomagnesemia; E87.6 Hypokalemia; E78.5 Hyperlipidemia, unspecified; I25.10 Atherosclerotic heart disease of native coronary artery without angina pectoris; Z86.74 Personal history of sudden cardiac arrest; Z85.41 Personal history of malignant neoplasm of cervix uteri; Z90.710 Acquired absence of both cervix and uterus; Z92.3 Personal history of irradiation; Z92.21 Personal history of antineoplastic chemotherapy; Z83.3 Family history of diabetes mellitus; Z79.899 Other long term (current) drug therapy; Z95.810 Presence of automatic (implantable) cardiac defibrillator
CPT/HCPCS: 36415; 71045; 76705; 80048; 80053; 80305; 81001; 82140; 82150; 82948; 83036; 83690; 83735; 83880; 84100; 84439; 84443; 84484; 85025; 85610; 85730; 87081; 93005; 96360; 99285; C9113; J1815; J3475; J7030; Q0092

== ENCOUNTER 2018-04-15 13:49 | Emergency (ER) | payer OTHER ==
[~2018-04-15] VITALS: Ht 154.9 cm; Wt 76.7 kg
[~2018-04-15 13:49] MED LIST changes: +ATOR20TA40 PO; -AZIT250T3 PO; +CARV3.122 PO; +CLOP75TA26 PO; -FLOR250 PO; +GLU500 PO; +LANTUS SUBQ; +LISI-424 PO; +MAGN400T40 PO; -METH4TAB3 PO; +MONT10TA35 PO; -NITR100C7 PO; +POTA10TE30 PO; +RANEX500 PO; +[UNRECOGNIZED DRUG - CODE] MC; +[UNRECOGNIZED DRUG - CODE] MC
[2018-04-15 13:50] VITALS: BP 161/96
[2018-04-15] MEDS ORDERED: ALBUTEROL SULFATE/IPRATROPIU 3 ML SOL IH ONE (14:00)
[2018-04-15] MEDS ORDERED: LISI-420 PO (14:23)
--- NOTE | 2018-04-15 14:23 | NUR ---
C/O SOB WITH CHEST DISCOMFORT AND COUGH SINCE LAST NIGHT. DIMINISHED BREATH SOUNDS THROUGHOUT.ERMD MADE AWARE. HX:DM,ASTHMA,HYSTERECTOMY,RESOLVED CERVICAL CANCER,LT. CHEST DEFIBRILATOR FOR WEAK HEART MUSCLE.
[2018-04-15] MEDS ORDERED: INSU100I7 SQ (14:26)
[2018-04-15] MEDS ORDERED: predniSONE 20 MG TAB PO ONE (14:30)
[2018-04-15 15:13] VITALS: BP 136/76
--- NOTE | 2018-04-15 15:13 | NUR ---
PT WAS DISCHARED BY DR FRY, PRESCRIBED WITH ALBUTEROL, PREDNISONE, FLOVENT. VSS PT STEADY GAIT. ALL PT QUESTIONS BY DR FRY.
== END 2018-04-15 15:13 | disposition home or self-care (01) ==
LOC: MED 13:49
DX: J45.901 Unspecified asthma with (acute) exacerbation (principal); I10 Essential (primary) hypertension; E11.9 Type 2 diabetes mellitus without complications; Z85.41 Personal history of malignant neoplasm of cervix uteri; Z90.710 Acquired absence of both cervix and uterus; Z79.899 Other long term (current) drug therapy; Z79.4 Long term (current) use of insulin
CPT/HCPCS: 94640; 99283; J7512; J7620